=== PATIENT | female | born 1950 | race Two or more races ===

== ENCOUNTER 2019-06-26 21:32 | Inpatient (IN) | payer MEDICARE, OTHER ==
[~2019-06-26] VITALS: Ht 165.1 cm; Wt 69.9 kg
--- NOTE | 2019-06-26 22:13 | NUR ---
Patient was medically cleared by DR Virk.
[2019-06-26] MEDS ORDERED: MAGN400O6 PO (22:15)
[2019-06-26] MEDS ORDERED: ACET325C7 PO (22:15)
[2019-06-26] MEDS ORDERED: LINA72CA PO (22:15)
[2019-06-26] MEDS ORDERED: MULT1TAB73 PO (22:15)
[2019-06-26] MEDS ORDERED: BENZ1TAB7 PO (22:15)
[2019-06-26] MEDS ORDERED: LOVA20TA2 PO (22:15)
[2019-06-26] MEDS ORDERED: QUET25TA34 PO (22:15)
[2019-06-26] MEDS ORDERED: MIRA50TA PO (22:15)
[2019-06-26] MEDS ORDERED: DIVA125T2 PO (22:15)
[2019-06-26] MEDS ORDERED: LACO150T2 PO (22:15)
[2019-06-26] MEDS ORDERED: LINA5TAB PO (22:15)
[2019-06-26] MEDS ORDERED: FLUO20CA40 PO (22:15)
[2019-06-26] MEDS ORDERED: ALBU8HFA4 INH (22:15)
[2019-06-26] MEDS ORDERED: LEVE500T9 PO (22:15)
[2019-06-26] MEDS ORDERED: NA P133E RC (22:15)
--- NOTE | 2019-06-26 23:10 | NUR ---
PATIENT WAS SEEN BY MARGARITA FROM PET AT BEDSIDE.
--- NOTE | 2019-06-26 23:30 | NUR ---
Patient is resting comfortably in bed with eyes closed
--- NOTE | 2019-06-26 23:56 | NUR ---
Pt. admitted to MHU , under care of Dr. SAHA Belongs List completed
[2019-06-27] MEDS ORDERED: MAGNESIUM HYDROXIDE 30 ML LIQUID UDC PO PRN (00:30)
[2019-06-27] MEDS ORDERED: MAG HYDROX/AL HYDROX/SIMETH 30 ML LIQUID UDC PO PRN (00:30)
[2019-06-27] MEDS ORDERED: TEMAZEPAM 7.5 MG CAPSULE PO PRN (00:30)
[2019-06-27] MEDS ORDERED: BLOOD SUGAR DIAGNOSTIC 1 EACH STRIP VI ONE (00:30)
[2019-06-27 00:45] VITALS: BP 122/55
--- NOTE | 2019-06-27 02:00 | NUR ---
AT APPROX. 0045 ADMITTED 68 YEARS OLD FEMALE TO [facility] ON A 5150 FOR GD. PER RECORDS, PATIENT LIVES AT [facility] ([facility]) SINCE 06/02/19 AFTER A FALL AT HER HOME. PER HOLD, PATIENT WAS TAKEN BY HER DAUGHTER TO [facility] AND WAS TREATED FOR RHABDOMYALISIS HAVING BEEN FOUND DOWN IN HER ROOM. PT MAY HAVE TAKEN TOO MUCH OPIATES MEDICATION. DURING HER MED SURG STAY, PT ATTEMPTED TO ELOPE TWICE FROM HER HOSPITAL ROOM AND WAS UNABLE TO PROVIDE A PLAN FOR SELF CARE. HER HOLD WILL END ON 06/29/2019 AT 2315. UPON ADMISSION TO MHU, FACE TO FACE ASSESSMENT WAS DONE, PATIENT IS NOTED SLEEPING, UNABLE TO SIGN ANY ADMISSION PAPER OR ANSWER ANY QUESTION (ACCORDING TO MEDICAL RECORDS, PATIENT RECEIVED GEODONE 10MG IM, ATIVAN 2MG IM AND HALDOL 3MG IM AT 1750 ON 06/27/19). ADVISEMENT WAS GIVEN AND HER "RIGHT FOR MENTAL HEALTH PATIENT" BOOKLET WAS GIVEN. SKIN ASSESSMENT WAS DONE IN PATIENT'S BED, A BRUISE UNDER HER CHIN WAS NOTED. PATIENT IS UNDER THE CARE OF DR SAHA AND DR TOBIN. WILL CONTINUE TO MONITOR
[2019-06-27 07:30] VITALS: BP 137/59
[2019-06-27] MEDS: LEVETIRACETAM 500 MG TABLET PO SCH ×2 (11:00→22:12)
[2019-06-27] MEDS: LACOSAMIDE 50 MG TABLET PO SCH ×2 (12:11→20:21)
--- NOTE | 2019-06-27 12:17 | NUR ---
Family Contact: Technology Sales Consultant spoke with patient's daughter, Vivian Kline ([phone]) and collected collateral information. Vivian stated she would liker for the patient to return to [facility] ([phone]) when she is going to be discharged.
--- NOTE | 2019-06-27 12:17 | NUR ---
Initial Discharge Note: Patient currently resides at [facility] [address] [place] [id number] ([phone]). Patient will be going back to the facility when she is stable. Senior Application Security Consultant will continue to work with patient, family, and MD to ensure a safe and proper discharge plan.
--- NOTE | 2019-06-27 12:18 | NUR ---
Coordination of Care: Thermoplastic Technician spoke with Susanna administrative associate at [facility] ([phone]) who confirmed that patient will be welcome back when stable and ready for discharge.
--- NOTE | 2019-06-27 12:20 | NUR ---
Firearms Report ([employer]): Cut Off Saw Set Up Operator completed and submitted a [employer] firearms report for 5150 grave disability certification. A copy of report has been placed in patient chart.
[2019-06-27 16:00] VITALS: BP 112/71
[2019-06-27 20:17] VITALS: BP 132/53
[2019-06-27] MEDS: ATORVASTATIN 10 MG TABLET PO SCH (20:20)
[2019-06-27] MEDS: RIVASTIGMINE TARTRATE 1.5 MG CAPSULE PO SCH (21:15)
--- NOTE | 2019-06-28 06:39 | NUR ---
PATIENT SLEPT FOR APPROX. 6.30 HRS THROUGH THE NIGHT. PATIENT REMAIN CALM AND COOPERATIVE THROUGH OUT THE SHIFT. CONTINUE WITH LOW MOOD, GUARDED, AND SUSPICIOUS. WILL CONTINUE TO MONITOR.
[2019-06-28 07:30] VITALS: BP 122/74
[2019-06-28] MEDS: SERTRALINE HCL 50 MG TABLET PO SCH (08:15)
[2019-06-28] MEDS: RIVASTIGMINE TARTRATE 1.5 MG CAPSULE PO SCH ×2 (08:15→20:04)
[2019-06-28] MEDS: MULTIVITAMINS,THERAPEUTIC TABLET PO SCH (08:16)
[2019-06-28] MEDS: LACOSAMIDE 50 MG TABLET PO SCH ×2 (08:16→20:04)
[2019-06-28 08:54] LABS: BASOPHILS % (AUTO) 0.5 % (0.0-2.0); EOSINOPHILS # (AUTO) 0.1 K/uL (0.0-0.7); EOSINOPHILS % (AUTO) 0.7 % (0.0-7.0); HEMATOCRIT 33.3 % (31.2-41.9); HEMOGLOBIN 11.1 g/dL (10.9-14.3); LYMPHOCYTES # (AUTO) 1.6 K/uL (20.0-40.0); LYMPHOCYTES % (AUTO) 20.1 % (20.5-51.5); MEAN CORPUSCULAR HEMOGLOBIN 30.1 uug (24.7-32.8); MEAN CORPUSCULAR HGB CONC 33 g/dL (32.3-35.6); MEAN CORPUSCULAR VOLUME 90.4 fL (75.5-95.3); MONOCYTES # (AUTO) 0.6 K/uL (2.0-10.0); MONOCYTES % (AUTO) 7.2 % (0.0-11.0); NEUTROPHILS # (AUTO) 5.6 K/uL (1.8-8.9); NEUTROPHILS % (AUTO) 71.5 % (38.5-71.5); PLATELET COUNT (AUTO) 258 K/uL (179-408); RED BLOOD CELL COUNT(AUTO) 3.68 MIL/uL (3.63-4.92); WHITE BLOOD COUNT (AUTO) 7.9 K/uL (3.8-11.8)
[2019-06-28] MEDS ORDERED: Medication Not On Formulary EA (Linaclotide (Linzess) 72 MCG) PO SCH (09:00)
[2019-06-28] MEDS ORDERED: Medication Not On Formulary EA (Mirabegron (Myrbetriq) 50 MG) PO SCH (09:00)
[2019-06-28] MEDS ORDERED: Medication Not On Formulary EA (Multivitamins (Multivitamin) 1 EACH) PO SCH (09:00)
[2019-06-28 09:03] LABS: BILIRUBIN,TOTAL 0.5 mg/dL (0.2-1.0); CREATININE 0.8 mg/dL (0.6-1.3); MAGNESIUM 1.3 mg/dL (1.8-2.4); PHOSPHOROUS 3.5 mg/dL (2.5-4.9); POTASSIUM 3.4 mmol/L (3.5-5.1); TOTAL PROTEIN, SERUM 6.7 g/dL (6.4-8.2)
[2019-06-28] MEDS: LORAZEPAM 1 MG TABLET PO PRN (09:12)
[2019-06-28 09:33] LABS: THYROID STIMULATING HORMONE 2.763 mIU/mL (0.358-3.740)
[2019-06-28] MEDS: LEVETIRACETAM 500 MG TABLET PO SCH ×2 (11:19→21:47)
[2019-06-28 15:39] VITALS: BP 127/69
[2019-06-28 19:13] LABS: *BILIRUBIN,URIN 1+ (NEGATIVE); *BLOOD, URINE NEGATIVE (NEGATIVE); *COLOR,URINE YELLOW (YELLOW); *KETONES,URINE NEGATIVE (NEGATIVE); LEUKOCYTE ESTERASE ,URINE 1+ (NEGATIVE); NITRITE, URINE NEGATIVE (NEGATIVE); UGLUCOSE NEGATIVE (NEGATIVE)
[2019-06-28 19:22] LABS: *CLARITY,URINE TURBID (CLEAR)
[2019-06-28 19:27] LABS: BACTERIA,URINE MANY /HPF (NONE SEEN); SQUAMOUS EPITHELIAL CELL,UR MODERATE /HPF (NONE SEEN); WBC,URINE 20-50 /HPF (0-3)
[2019-06-28 19:29] LABS: MUCUS,URINE MODERATE /LPF (0-FEW)
[2019-06-28] MEDS: ATORVASTATIN 10 MG TABLET PO SCH (20:04)
[2019-06-28 20:22] VITALS: BP 121/48
[2019-06-28] MEDS ORDERED: CEphaleXIN 250 MG CAPSULE ONE (20:32)
[2019-06-28] MEDS: CEphaleXIN 250 MG CAPSULE PO SCH (21:07)
[2019-06-29] MEDS: CEphaleXIN 250 MG CAPSULE PO SCH ×3 (06:03→22:00)
[2019-06-29 07:50] VITALS: BP 103/52
[2019-06-29] MEDS: LACOSAMIDE 50 MG TABLET PO SCH ×2 (08:55→20:16)
[2019-06-29] MEDS: MULTIVITAMINS,THERAPEUTIC TABLET PO SCH (08:55)
[2019-06-29] MEDS: SERTRALINE HCL 50 MG TABLET PO SCH (08:55)
[2019-06-29] MEDS: RIVASTIGMINE TARTRATE 1.5 MG CAPSULE PO SCH ×2 (09:00→20:16)
[2019-06-29] MEDS: LORAZEPAM 1 MG TABLET PO PRN ×2 (10:37→15:17)
[2019-06-29] MEDS: LEVETIRACETAM 500 MG TABLET PO SCH ×2 (10:45→22:00)
--- NOTE | 2019-06-29 10:45 | NUR ---
Gps/Tech Intern- Confused, wanders around room to room,. Found patient sleeping in others' bed. Redirected patient, constant reorientations provided, safety emphasized. monitored closely for safety
[2019-06-29] MEDS ORDERED: POTASSIUM CHLORIDE 20 MEQ TAB.PRT.SR PO ONE (14:15)
--- NOTE | 2019-06-29 15:42 | NUR ---
Individual Therapy Note: gas systems worker met with patient to provide supportive counseling. Patient presents disoriented cognitive functioning. Patient is forgetful and unsure where she is. gas systems worker redirected the patient and will remain available to patient.
[2019-06-29 16:51] VITALS: BP 109/76
[2019-06-29 20:03] VITALS: BP 99/62
[2019-06-29] MEDS: ATORVASTATIN 10 MG TABLET PO SCH (20:16)
--- NOTE | 2019-06-29 22:45 | NUR ---
Pt served with copy of 5250 Certification.
[2019-06-30] MEDS: CEphaleXIN 250 MG CAPSULE PO SCH ×3 (05:40→23:05)
[2019-06-30 07:30] VITALS: BP 115/53
[2019-06-30] MEDS: RIVASTIGMINE TARTRATE 1.5 MG CAPSULE PO SCH ×2 (08:37→20:06)
[2019-06-30] MEDS: LACOSAMIDE 50 MG TABLET PO SCH ×2 (08:38→20:06)
[2019-06-30] MEDS: SERTRALINE HCL 50 MG TABLET PO SCH (08:38)
[2019-06-30] MEDS: MULTIVITAMINS,THERAPEUTIC TABLET PO SCH (08:38)
[2019-06-30] MEDS: LEVETIRACETAM 500 MG TABLET PO SCH ×2 (10:53→21:00)
[2019-06-30] MEDS: LORAZEPAM 1 MG TABLET PO PRN (13:46)
[2019-06-30] MEDS: ACETAMINOPHEN 325 MG TABLET PO PRN (14:17)
[2019-06-30 16:36] VITALS: BP 126/79
[2019-06-30] MEDS: ATORVASTATIN 10 MG TABLET PO SCH (20:06)
[2019-06-30] MEDS ORDERED: LEVETIRACETAM 500 MG TABLET PO SCH (20:10)
[2019-06-30 20:11] VITALS: BP 122/99
[2019-07-01] MEDS: CEphaleXIN 250 MG CAPSULE PO SCH ×3 (06:22→21:54)
[2019-07-01 07:30] VITALS: BP 147/54
[2019-07-01] MEDS: RIVASTIGMINE TARTRATE 1.5 MG CAPSULE PO SCH ×2 (08:22→20:44)
[2019-07-01] MEDS: LACOSAMIDE 50 MG TABLET PO SCH ×2 (08:22→20:44)
[2019-07-01] MEDS: LEVETIRACETAM 500 MG TABLET PO SCH ×2 (08:22→20:44)
[2019-07-01] MEDS: MULTIVITAMINS,THERAPEUTIC TABLET PO SCH (08:22)
[2019-07-01] MEDS: SERTRALINE HCL 100 MG TABLET PO SCH (09:34)
[2019-07-01 16:00] VITALS: BP 118/37
--- NOTE | 2019-07-01 16:00 | NUR ---
Gps/Insurance Special Agent- Wandering around room to room, constant redirections, safety reviewed emphasized. Remains with some crying spells this pm ,pt. was reassured, reoriented from time to time.
[2019-07-01 20:00] VITALS: BP 117/79
[2019-07-01] MEDS: ATORVASTATIN 10 MG TABLET PO SCH (20:44)
[2019-07-02] MEDS: CEphaleXIN 250 MG CAPSULE PO SCH ×3 (06:42→20:52)
[2019-07-02 07:30] VITALS: BP 101/53
[2019-07-02] MEDS: RIVASTIGMINE TARTRATE 1.5 MG CAPSULE PO SCH ×2 (09:11→20:33)
[2019-07-02] MEDS: LACOSAMIDE 50 MG TABLET PO SCH ×2 (09:11→20:33)
[2019-07-02] MEDS: risperiDONE 0.5 MG TABLET PO SCH ×2 (09:12→20:33)
[2019-07-02] MEDS: SERTRALINE HCL 100 MG TABLET PO SCH (09:12)
[2019-07-02] MEDS: LEVETIRACETAM 500 MG TABLET PO SCH ×2 (09:12→20:33)
[2019-07-02] MEDS: MULTIVITAMINS,THERAPEUTIC TABLET PO SCH (09:12)
[2019-07-02 16:00] VITALS: BP 113/49
[2019-07-02 20:00] VITALS: BP 151/72
[2019-07-02] MEDS: ATORVASTATIN 10 MG TABLET PO SCH (20:34)
[2019-07-03] MEDS: CEphaleXIN 250 MG CAPSULE PO SCH ×3 (06:42→21:19)
[2019-07-03 07:30] VITALS: BP 116/72
[2019-07-03] MEDS: risperiDONE 0.5 MG TABLET PO SCH (08:19)
[2019-07-03] MEDS: LACOSAMIDE 50 MG TABLET PO SCH ×2 (08:19→20:10)
[2019-07-03] MEDS: RIVASTIGMINE TARTRATE 1.5 MG CAPSULE PO SCH ×2 (08:19→20:11)
[2019-07-03] MEDS: LEVETIRACETAM 500 MG TABLET PO SCH ×2 (08:19→20:11)
[2019-07-03] MEDS: MULTIVITAMINS,THERAPEUTIC TABLET PO SCH (08:19)
[2019-07-03] MEDS: SERTRALINE HCL 100 MG TABLET PO SCH (08:20)
--- NOTE | 2019-07-03 09:12 | NUR ---
Received patient awake and alert in her assigned bed. Bed is locked, in low position. Patient provided with redirection because she frequently asks staff if she can be discharged. patient educated about discharge process. Patient educated about how to communicate needs to staff and impulse control. Will continue to monitor.
--- NOTE | 2019-07-03 12:19 | NUR ---
Coordination of Care: Kosher Sealer spoke with Susanna administrative services director at [facility] ([phone]) who confirmed that patient will be welcome back even after the 7 day bed hold which expires tomorrow 07/04/2019. Kosher Sealer faxed Susanna (fax: [phone]) patient progress notes and medication list.
--- NOTE | 2019-07-03 12:52 | NUR ---
PC Hearing Notification: Sports Equipment Supervisor left a voicemail for patient's daughter, Vivian Kline ([phone]) regarding pt's probable cause hearing scheduled for today at 3:30pm.
[2019-07-03] MEDS: LORAZEPAM 1 MG TABLET PO PRN (13:13)
--- NOTE | 2019-07-03 13:15 | NUR ---
Patient at the nurse station demanding to be given her belongings so she can go back home to [place]. Patient demanding to be discharged. She is confused and disoriented, patient is anxious, angry, and irritable with staff. Patient provided with redirection and reality orientation. Educated about discharge process but continues to demand her belongings to leave. Redirection not effective and relaxation techniques not effective. Patient given PRN Ativan PO. Educated about impulse control and communicating her needs to staff appropriately. Will continue to provide education and relaxation techniques.
[2019-07-03] MEDS ORDERED: LORAZEPAM 2 MG/1 ML VIAL IM ONE (15:15)
[2019-07-03] MEDS ORDERED: HALOPERIDOL LACTATE 5 MG/1 ML VIAL IM ONE (15:15)
--- NOTE | 2019-07-03 15:25 | NUR ---
Patient is angry, agitated, confused and disoriented, continuously asking staff if she can be let off the unit. Patient is banging on the doors to open them and asking staff to let her out. patient is yelling, non-redirectable, and not following direction from staff. patient is increasing in agitation and escalating in behavior. MD notified, orders received for Haldol 2 mg IM and Ativan 1 mg IM.
--- NOTE | 2019-07-03 15:39 | NUR ---
patient keep on going to Nursing Station telling that she has the discharge order, patient argumentative, unable to redirect at this time, patient threatening staff, explained to the patient that there is no discharge order as of today, patient still believes that she is going home today, will continue monitor patient behavior
[2019-07-03 16:27] VITALS: BP 123/54
[2019-07-03 20:08] VITALS: BP 118/62
[2019-07-03] MEDS: risperiDONE 1 MG TABLET PO SCH (20:09)
[2019-07-03] MEDS: ATORVASTATIN 10 MG TABLET PO SCH (20:10)
--- NOTE | 2019-07-03 21:45 | NUR ---
Fall Note: Pt was fixated and hyper-focused on discharging from the unit and insistent that she will be "leaving tonight." Pt attempted multiple times to AWOL from the unit, banging on the exit doors and attempting to exit when others enter, education and redirection were provided to her multiple times to no avail. Pt was directed to the day room or her room multiple times. Pt was offered a FWW because she was pacing the unit, her HS medications were already given, and she refused to sit down. The staff heard a loud noise from the front part of the hallway (toward the exit doors), and Pt was found down on the ground, and stated she had fallen. Blood was noted at her upper (L) eyebrow. VS were taken and stable. Per the Pt and unit camera, no loss of LOC noted. Pt refused any pain medication at that time, stating she won't need it for her "walk home." Photo taken of wound and placed in chart. 3 steri-strips applied to laceration. Dr Arenas notified and ordered CT of the head and face without contrast with CBC, CMP, Mg and P labs ordered for the AM. Upon coming back from CT, Pt asked for and received Tylenol 650mg for 5/10 head pain. Pt remains at baseline LOC, with neuro/circ check intact. Dr Nava and nursing After School Coordinator Kaykay also made aware.
[2019-07-03] MEDS: ACETAMINOPHEN 325 MG TABLET PO PRN (21:48)
[2019-07-04] MEDS: LORAZEPAM 1 MG TABLET PO PRN ×2 (04:18→15:18)
--- NOTE | 2019-07-04 04:20 | NUR ---
GPS: Pt.is confused,disoriented,angry,agitated and frequently asking to leave the unit. Easily agitated when being re-directed. Ativan 1mg PO given and taken after a lot of persuasion from staff. Safety emphasized. Fall precautions maintained. Denies pain at this time s/t recent fall last night. Poor insight to present situation. Will continue to monitor behavior for further escalation.
[2019-07-04] MEDS: CEphaleXIN 250 MG CAPSULE PO SCH ×2 (05:47→13:04)
[2019-07-04 07:33] LABS: BASOPHILS # (AUTO) 0.1 K/uL (0.0-8.0); BASOPHILS % (AUTO) 0.9 % (0.0-2.0); EOSINOPHILS # (AUTO) 0.1 K/uL (0.0-0.7); EOSINOPHILS % (AUTO) 1.6 % (0.0-7.0); HEMATOCRIT 33.6 % (31.2-41.9); HEMOGLOBIN 11.1 g/dL (10.9-14.3); LYMPHOCYTES # (AUTO) 1.7 K/uL (20.0-40.0); LYMPHOCYTES % (AUTO) 25.8 % (20.5-51.5); MEAN CORPUSCULAR HEMOGLOBIN 30.2 uug (24.7-32.8); MEAN CORPUSCULAR HGB CONC 33 g/dL (32.3-35.6); MONOCYTES # (AUTO) 0.6 K/uL (2.0-10.0); MONOCYTES % (AUTO) 8.5 % (0.0-11.0); NEUTROPHILS # (AUTO) 4.2 K/uL (1.8-8.9); NEUTROPHILS % (AUTO) 63.2 % (38.5-71.5); PLATELET COUNT (AUTO) 243 K/uL (179-408); RED BLOOD CELL COUNT(AUTO) 3.69 MIL/uL (3.63-4.92); WHITE BLOOD COUNT (AUTO) 6.6 K/uL (3.8-11.8)
[2019-07-04 07:41] LABS: BILIRUBIN,TOTAL 0.5 mg/dL (0.2-1.0); CREATININE 0.9 mg/dL (0.6-1.3); MAGNESIUM 1.4 mg/dL (1.8-2.4); PHOSPHOROUS 3.9 mg/dL (2.5-4.9); POTASSIUM 3.3 mmol/L (3.5-5.1); TOTAL PROTEIN, SERUM 7.3 g/dL (6.4-8.2)
[2019-07-04 07:55] VITALS: BP 102/52
[2019-07-04] MEDS: risperiDONE 1 MG TABLET PO SCH ×2 (09:00→21:00)
[2019-07-04] MEDS: LEVETIRACETAM 500 MG TABLET PO SCH ×2 (09:00→21:00)
[2019-07-04] MEDS: LACOSAMIDE 50 MG TABLET PO SCH ×2 (09:00→21:00)
[2019-07-04] MEDS: RIVASTIGMINE TARTRATE 1.5 MG CAPSULE PO SCH ×2 (09:00→21:00)
[2019-07-04] MEDS: MULTIVITAMINS,THERAPEUTIC TABLET PO SCH (09:00)
[2019-07-04] MEDS: SERTRALINE HCL 100 MG TABLET PO SCH (09:00)
[2019-07-04] MEDS ORDERED: MAGNESIUM OXIDE 400 MG TABLET PO ONE (12:00)
[2019-07-04] MEDS ORDERED: POTASSIUM CHLORIDE 20 MEQ TAB.PRT.SR PO ONE (12:00)
[2019-07-04 17:03] VITALS: BP 111/52
--- NOTE | 2019-07-04 17:48 | NUR ---
GPS: received patien on Keira-chair, patient hyperverbal, refusing medication, argumentative, patient assisted with ADLs , patient eventually calm down later part of the day , will continue monitor
[2019-07-04 19:30] VITALS: BP 117/74
[2019-07-04] MEDS: ATORVASTATIN 10 MG TABLET PO SCH (21:00)
--- NOTE | 2019-07-04 23:00 | NUR ---
Pharmacy Note: HS meds held due to increased sedation, all meds returned to [facility].
[2019-07-05 07:30] VITALS: BP 113/68
[2019-07-05] MEDS: RIVASTIGMINE TARTRATE 1.5 MG CAPSULE PO SCH ×2 (10:14→20:12)
[2019-07-05] MEDS: MULTIVITAMINS,THERAPEUTIC TABLET PO SCH (10:14)
[2019-07-05] MEDS: risperiDONE 1 MG TABLET PO SCH ×2 (10:14→20:12)
[2019-07-05] MEDS: LEVETIRACETAM 500 MG TABLET PO SCH ×2 (10:14→20:06)
[2019-07-05] MEDS: SERTRALINE HCL 100 MG TABLET PO SCH (10:15)
[2019-07-05] MEDS: LACOSAMIDE 50 MG TABLET PO SCH ×2 (10:15→20:12)
--- NOTE | 2019-07-05 10:39 | NUR ---
Received patient asleep in her assigned bed. Bed is in low position and locked. Patient is arousable to name and light touch. Patient is confused upon waking up, she requires orientation to place, time, date, and situation. She requires orientation to her surroundings. Patient is encouraged to communicate her needs to staff and ask staff for assistance. Patient requires assistance with ADL's and self care. Educated about safety and impulse control.
[2019-07-05 15:15] VITALS: BP 114/64
[2019-07-05] MEDS: ACETAMINOPHEN 325 MG TABLET PO PRN (20:05)
[2019-07-05 20:08] VITALS: BP 116/59
[2019-07-05] MEDS: ATORVASTATIN 10 MG TABLET PO SCH (20:12)
--- NOTE | 2019-07-06 06:41 | NUR ---
Pt had elevated temp at the beginning of shift at 100.2. Tylenol 650mg administered, 98.8 upon re check. HS risperdal and Vimpat held due to increased sedation.
[2019-07-06 07:30] VITALS: BP 117/48
--- NOTE | 2019-07-06 08:03 | NUR ---
Social Work Note/Firearms Report: Binder Cutter completed and submitted a [employer] firearms report for 5250 grave disability certification. A copy of report has been placed in patient chart.
--- NOTE | 2019-07-06 08:04 | NUR ---
Social Work Note/Discharge: Patient will be discharged back to [facility] [address] [facility], [place] [address]; ([phone]). Order Processing Clerk spoke with [facility] admin coordinator ([phone]) at the facility who states they are ready to accept the patient back today. Patient is aware and agreeable with discharge plans. Patients courtney Hussein, ([phone]) is aware and agreeable with discharge plans. Patient is aware and agreeable with discharge plans. Patient is alert and oriented x2, is not able to plan for self-care, and denies any suicidal or homicidal ideations. Patient will follow up with Dr. Gee (sales research analyst) and Dr. Felipe (psychiatrist). Patient will follow up with her doctors at the facility. Patient was provided with outpatient mental health resources to [facility] , and the [facility] . Patient presents with euthymic mood and congruent affect. Addendum: 07/06/19 at 0807 by LIZA MAYFIELD disregard this note.
[2019-07-06] MEDS: RIVASTIGMINE TARTRATE 1.5 MG CAPSULE PO SCH ×2 (09:40→20:40)
[2019-07-06] MEDS: MULTIVITAMINS,THERAPEUTIC TABLET PO SCH (09:40)
[2019-07-06] MEDS: LEVETIRACETAM 500 MG TABLET PO SCH ×2 (09:40→20:40)
[2019-07-06] MEDS: risperiDONE 0.5 MG TABLET PO SCH ×2 (09:40→20:40)
[2019-07-06] MEDS: SERTRALINE HCL 100 MG TABLET PO SCH (09:40)
[2019-07-06] MEDS: LACOSAMIDE 50 MG TABLET PO SCH ×2 (09:45→20:40)
[2019-07-06] MEDS: LORAZEPAM 1 MG TABLET PO PRN (13:31)
[2019-07-06 16:00] VITALS: BP 103/42
[2019-07-06 20:12] VITALS: BP 112/48
--- NOTE | 2019-07-06 20:30 | NUR ---
RECEIVED PATIENT IN THE HALLWAY SITTING IN THE CHING CHAIR. SHE IS NOTED AWAKE A/O X 1. NOTED CONFUSED, DISORIENTED, TANGENTAL, LABILE. HOWEVER, NO AGGRESSIVE/COMBATIVE BX NOTED AT THIS TIME. PT COMPLIANT WITH MEDICATION REGIMENT AT THIS TIME. V/S STABLE AT THIS TIME. SAFETY AND FALL PRECAUTION ARE IN PLACE. WILL CONTINUE TO MONITOR.
[2019-07-06] MEDS: ATORVASTATIN 10 MG TABLET PO SCH (20:40)
[2019-07-07 07:30] VITALS: BP 105/49
[2019-07-07] MEDS: RIVASTIGMINE TARTRATE 1.5 MG CAPSULE PO SCH ×2 (08:58→20:14)
[2019-07-07] MEDS: risperiDONE 0.5 MG TABLET PO SCH ×2 (08:59→20:14)
[2019-07-07] MEDS: LEVETIRACETAM 500 MG TABLET PO SCH ×2 (08:59→20:14)
[2019-07-07] MEDS: MULTIVITAMINS,THERAPEUTIC TABLET PO SCH (08:59)
[2019-07-07] MEDS: LACOSAMIDE 50 MG TABLET PO SCH ×2 (08:59→20:13)
[2019-07-07] MEDS: SERTRALINE HCL 100 MG TABLET PO SCH (09:08)
[2019-07-07] MEDS: ACETAMINOPHEN 325 MG TABLET PO PRN (11:03)
[2019-07-07 17:01] VITALS: BP 112/52
[2019-07-07] MEDS: ATORVASTATIN 10 MG TABLET PO SCH (20:13)
[2019-07-07 20:38] VITALS: BP 126/64
[2019-07-08 07:49] VITALS: BP 119/69
[2019-07-08] MEDS: risperiDONE 0.5 MG TABLET PO SCH ×2 (08:32→20:02)
[2019-07-08] MEDS: MULTIVITAMINS,THERAPEUTIC TABLET PO SCH (08:32)
[2019-07-08] MEDS: LEVETIRACETAM 500 MG TABLET PO SCH ×2 (08:32→20:02)
[2019-07-08] MEDS: LACOSAMIDE 50 MG TABLET PO SCH ×2 (08:32→20:02)
[2019-07-08] MEDS: RIVASTIGMINE TARTRATE 1.5 MG CAPSULE PO SCH ×2 (08:32→20:02)
[2019-07-08] MEDS: SERTRALINE HCL 100 MG TABLET PO SCH (08:47)
[2019-07-08] MEDS: LORAZEPAM 1 MG TABLET PO PRN (15:11)
[2019-07-08 16:54] VITALS: BP 118/48
--- NOTE | 2019-07-08 18:19 | NUR ---
GPS: patient AOx1, compliant with medication still confused and calling her daughter and wanting to go home , able to redirect
[2019-07-08 19:59] VITALS: BP 116/45
[2019-07-08] MEDS: ATORVASTATIN 10 MG TABLET PO SCH (20:02)
[2019-07-09] MEDS: ACETAMINOPHEN 325 MG TABLET PO PRN (02:28)
[2019-07-09] MEDS: LORAZEPAM 1 MG TABLET PO PRN (02:28)
[2019-07-09 07:39] VITALS: BP 101/57
[2019-07-09] MEDS: LACOSAMIDE 50 MG TABLET PO SCH ×2 (08:23→20:18)
[2019-07-09] MEDS: MULTIVITAMINS,THERAPEUTIC TABLET PO SCH (08:23)
[2019-07-09] MEDS: LEVETIRACETAM 500 MG TABLET PO SCH ×2 (08:23→20:18)
[2019-07-09] MEDS: SERTRALINE HCL 100 MG TABLET PO SCH (08:23)
[2019-07-09] MEDS: RIVASTIGMINE TARTRATE 1.5 MG CAPSULE PO SCH ×2 (08:23→20:18)
[2019-07-09] MEDS: risperiDONE 0.5 MG TABLET PO SCH ×2 (08:23→20:18)
[2019-07-09 16:43] VITALS: BP 123/58
[2019-07-09] MEDS: ATORVASTATIN 10 MG TABLET PO SCH (20:18)
[2019-07-09 20:29] VITALS: BP 117/50
[2019-07-10] MEDS ORDERED: TEMAZEPAM 7.5 MG CAPSULE PO PRN (04:45)
[2019-07-10 07:30] VITALS: BP 109/70
[2019-07-10] MEDS: LEVETIRACETAM 500 MG TABLET PO SCH ×2 (08:07→20:09)
[2019-07-10] MEDS: RIVASTIGMINE TARTRATE 1.5 MG CAPSULE PO SCH ×2 (08:07→20:09)
[2019-07-10] MEDS: LACOSAMIDE 50 MG TABLET PO SCH ×2 (08:07→20:10)
[2019-07-10] MEDS: MULTIVITAMINS,THERAPEUTIC TABLET PO SCH (08:07)
[2019-07-10] MEDS: SERTRALINE HCL 100 MG TABLET PO SCH (08:07)
[2019-07-10] MEDS: risperiDONE 0.5 MG TABLET PO SCH ×2 (08:07→20:09)
[2019-07-10] MEDS: LORAZEPAM 1 MG TABLET PO PRN ×2 (13:12→20:09)
--- NOTE | 2019-07-10 15:50 | NUR ---
Social Work Note/Coordination of Care: sheet metal duct worker supervisor faxed Susanna from [facility] (F: [phone]) [facility] psychiatric notes and progress notes and medication. sheet metal duct worker supervisor left a voicemail in regard to patient being discharged 07/11 or 07/12.
[2019-07-10 16:04] VITALS: BP 105/54
--- NOTE | 2019-07-10 16:09 | NUR ---
Social Work Note/Coordination of Care: diversified crops farmworker spoke to [place] ([phone]) (F:[phone]) and made an appointment with primary doctor Dr. Genesis Toribio for July 18 at 10AM. diversified crops farmworker also faxed patients [facility] psychiatric notes and progress notes and medication. Addendum: 07/11/19 at 1325 by LISA COURTNEY Disregard this note. Incorrect patient.
--- NOTE | 2019-07-10 18:25 | NUR ---
GPS: patient AOx1, patient calm cooperative, compliant with medication, denies SI and HI
[2019-07-10] MEDS: ATORVASTATIN 10 MG TABLET PO SCH (20:10)
[2019-07-10 20:22] VITALS: BP 103/64
[2019-07-11 07:30] VITALS: BP 107/60
[2019-07-11] MEDS: LEVETIRACETAM 500 MG TABLET PO SCH ×2 (08:14→20:24)
[2019-07-11] MEDS: MULTIVITAMINS,THERAPEUTIC TABLET PO SCH (08:14)
[2019-07-11] MEDS: risperiDONE 0.5 MG TABLET PO SCH ×2 (08:14→20:25)
[2019-07-11] MEDS: LACOSAMIDE 50 MG TABLET PO SCH ×2 (08:14→20:25)
[2019-07-11] MEDS: RIVASTIGMINE TARTRATE 1.5 MG CAPSULE PO SCH ×2 (08:14→20:25)
[2019-07-11] MEDS: SERTRALINE HCL 100 MG TABLET PO SCH (08:15)
[2019-07-11] MEDS: LORAZEPAM 1 MG TABLET PO PRN ×2 (09:09→15:24)
[2019-07-11] MEDS: ACETAMINOPHEN 325 MG TABLET PO PRN (10:25)
--- NOTE | 2019-07-11 13:28 | NUR ---
Social Work Note/Coordination of Care: electrical lineworker spoke with Susanna billing and insurance coordinator at [facility] (F: [phone]) regarding patient's plan for discharge soon. Susanna will be speaking with AILEEN Pisano and returning call to this typewriter tester. Addendum: 07/11/19 at 1347 by LISA COURTNEY Patient is accepted back to facility and can return tomorrow.
[2019-07-11 15:47] VITALS: BP 103/52
[2019-07-11 20:08] VITALS: BP 115/60
[2019-07-11] MEDS: ATORVASTATIN 10 MG TABLET PO SCH (20:24)
--- NOTE | 2019-07-11 22:00 | NUR ---
received to care, up in vera chair, appearing confused, but pleasant when approached. compliant with medications and staff direction. as of 2199, she appears to be asleep, in bed. no distress noted. will continue to monitor closely.
--- NOTE | 2019-07-12 06:00 | NUR ---
slept 5.25 hours, total. continues to sleep. no distress noted.
[2019-07-12 07:30] VITALS: BP 111/46
--- NOTE | 2019-07-12 08:13 | NUR ---
Social Work Note/Discharge Note: Patient will be discharged to [address] [address] ([phone] will be provided ambulance transportation at 11:00AM. Spoke with Susanna Admin Coordinator at the facility who states they are ready to accept the patient back today. Patient is alert and oriented x2-3, denies suicidal or homicidal ideation, and is aware and agreeable with discharge plans. Patient is unable to provide for self-care at this time, however, is willing to continue to accept care at the facility. Patients daughter, Vivian Kline ([phone]) is made aware and agreeable with discharge plans. Patient will follow-up at the facility with her primary care physician Dr. Reich and psychiatrist Dr. Vela.
[2019-07-12] MEDS: risperiDONE 0.5 MG TABLET PO SCH (09:25)
[2019-07-12] MEDS: LACOSAMIDE 50 MG TABLET PO SCH (09:25)
[2019-07-12] MEDS: MULTIVITAMINS,THERAPEUTIC TABLET PO SCH (09:25)
[2019-07-12] MEDS: LEVETIRACETAM 500 MG TABLET PO SCH (09:25)
[2019-07-12] MEDS: SERTRALINE HCL 100 MG TABLET PO SCH (09:25)
[2019-07-12] MEDS: RIVASTIGMINE TARTRATE 1.5 MG CAPSULE PO SCH (09:25)
--- NOTE | 2019-07-12 13:00 | NUR ---
Pt is being discharged to [facility]. Pt is being picked up by an ambulance. Pt is A/O x1-2, no agitation. Pt's daughter SHAWNA is aware. Pt is cooperative, vs are stable. Report was given to ALFA De La Rosa at the facility. All belongings returned.
== END 2019-07-12 13:00 | DRG 885 ==
LOC: ER 21:44 → GPS 06-27 00:26
PROVIDERS: ADMIT Psychiatry & Neurology Psychiatry; ATTEND Internal Medicine
DX: F32.3 Major depressive disorder, single episode, severe with psychotic features (principal); F11.20 Opioid dependence, uncomplicated; N39.0 Urinary tract infection, site not specified; Z98.1 Arthrodesis status; E78.5 Hyperlipidemia, unspecified; F03.90 Unspecified dementia, unspecified severity, without behavioral disturbance, psychotic disturbance, mood disturbance, and anxiety; R32 Unspecified urinary incontinence; E11.9 Type 2 diabetes mellitus without complications; G40.909 Epilepsy, unspecified, not intractable, without status epilepticus; R29.6 Repeated falls; S49.82XA Other specified injuries of left shoulder and upper arm, initial encounter; S01.112A Laceration without foreign body of left eyelid and periocular area, initial encounter; W18.30XA Fall on same level, unspecified, initial encounter; Y93.01 Activity, walking, marching and hiking; Y92.238 Other place in hospital as the place of occurrence of the external cause; Z66 Do not resuscitate; Y99.8 Other external cause status; G89.29 Other chronic pain; F17.210 Nicotine dependence, cigarettes, uncomplicated; J44.9 Chronic obstructive pulmonary disease, unspecified; I10 Essential (primary) hypertension; Z79.899 Other long term (current) drug therapy; Z91.19 Patient's noncompliance with other medical treatment and regimen; Z79.84 Long term (current) use of oral hypoglycemic drugs; E66.9 Obesity, unspecified; Z68.27 Body mass index [BMI] 27.0-27.9, adult; E55.9 Vitamin D deficiency, unspecified; E03.9 Hypothyroidism, unspecified
CPT/HCPCS: 36415; 70450; 70486; 73030; 73060; 73090; 83735; 84100; 84443; 85025; 87086; 93307; A4663; J1630; J2060